=== PATIENT | female | born 1965 | race Caucasian/White ===

== ENCOUNTER → 2017-08-09 | Outpatient (CLI) | payer OTHER | LOC: FIMAGING 07:20 | PROVIDERS: ATTEND Family Medicine | DX: R10.9 Unspecified abdominal pain (principal); Z98.84 Bariatric surgery status ==

== ENCOUNTER 2018-11-10 09:51 | Outpatient (CLI) | payer BC ==
[2018-11-10] MEDS ORDERED: ACETAMINOPHEN 325 MG TAB PO ONE (10:15)
== END 2018-11-10 13:40 | disposition home or self-care (01) ==
LOC: FOBOP 09:51
PROVIDERS: ATTEND Internal Medicine Hematology & Oncology
PROC: 30253N1 (ICD-10-PCS; principal; 2018-11-10)
DX: C56.9 Malignant neoplasm of unspecified ovary (principal)
CPT/HCPCS: 36430; P9016; J1200; J1642

== ENCOUNTER 2018-11-24 09:25 | Outpatient (CLI) | payer BC ==
[2018-11-24] MEDS ORDERED: ACETAMINOPHEN 325 MG TAB PO ONE (10:00)
[2018-11-24] MEDS ORDERED: ACETAMINOPHEN 325 MG TAB ONE (10:08)
[2018-11-24 10:12] VITALS: BP 97/46
== END 2018-11-24 13:30 | disposition home or self-care (01) ==
LOC: FOBOP 09:25
PROVIDERS: ATTEND Internal Medicine Hematology & Oncology
PROC: 30233N1 Transfusion of Nonautologous Red Blood Cells into Peripheral Vein, Percutaneous Approach (ICD-10-PCS; principal; 2018-11-24)
DX: C56.9 Malignant neoplasm of unspecified ovary (principal)
CPT/HCPCS: 36430; P9016; 86860-90; 86870-90; 86905-90; 86922-90; 99001-90; J1642

== ENCOUNTER → 2018-12-02 | Outpatient (CLI) | payer BC ==
[~2018-12-02] MED LIST: ACETAMINOPHEN 325 MG TAB PO ONE
== END ==
LOC: FOBOP 10:18
PROVIDERS: ATTEND Internal Medicine Hematology & Oncology
PROC: 30233N1 Transfusion of Nonautologous Red Blood Cells into Peripheral Vein, Percutaneous Approach (ICD-10-PCS; principal; 2018-12-02)
DX: C56.9 Malignant neoplasm of unspecified ovary (principal)
CPT/HCPCS: 36430; P9016; 99001-90; J1642

== ENCOUNTER → 2018-12-22 | Outpatient (CLI) | payer BC ==
[~2018-12-22] MED LIST changes: +diphenhydrAMINE 25 MG CAP PO ONE
== END ==
LOC: FOBOP 09:57
PROVIDERS: ATTEND Internal Medicine Hematology & Oncology
PROC: 30233N1 Transfusion of Nonautologous Red Blood Cells into Peripheral Vein, Percutaneous Approach (ICD-10-PCS; principal; 2018-12-22)
DX: C56.9 Malignant neoplasm of unspecified ovary (principal)
CPT/HCPCS: 36430; P9016; 99001-90; J1642